=== PATIENT | female | born 1945 | race Caucasian/White ===

== ENCOUNTER 2023-08-15 13:26 | Inpatient (IN) | payer MEDICARE, OTHER ==
[~2023-08-15] VITALS: Ht 165.1 cm; Wt 108.9 kg
[2023-08-15] MEDS ORDERED: diphenhydrAMINE 50 MG/1 ML VIAL ONE (14:09)
[2023-08-15] MEDS ORDERED: HYDROMORPHONE 1 MG/1 ML DISP.SYRIN ONE (14:09)
[2023-08-15] MEDS: diphenhydrAMINE 50 MG/1 ML VIAL IM ONE (14:30)
[2023-08-15] MEDS: HYDROMORPHONE 1 MG/1 ML DISP.SYRIN IM ONE (14:31)
[2023-08-15] MEDS ORDERED: METH500T50 PO (14:36)
[2023-08-15] MEDS ORDERED: POLY250017 PO (14:36)
[2023-08-15] MEDS ORDERED: ATOR40TA PO (14:36)
[2023-08-15] MEDS ORDERED: [UNRECOGNIZED DRUG - CODE] PO (14:36)
[2023-08-15] MEDS ORDERED: METH4TAB17 PO (14:36)
[2023-08-15] MEDS ORDERED: LEVO150T8 PO (14:36)
[2023-08-15] MEDS ORDERED: TROS20TA3 PO (14:36)
[2023-08-15] MEDS ORDERED: HYDR-4077 PO (14:36)
[2023-08-15] MEDS ORDERED: LIPA1CAP15 PO (14:36)
[2023-08-15 15:00] LABS: BASOPHILS % (AUTO) 0.5 % (0.0-2.0); EOSINOPHILS % (AUTO) 0.7 % (0.0-7.0); LYMPHOCYTES # (AUTO) 0.8 K/uL (0.8-4.8); MEAN CORPUSCULAR HEMOGLOBIN 31.9 uug (24.7-32.8); MEAN CORPUSCULAR HGB CONC 32 g/dL (32.3-35.6); MEAN CORPUSCULAR VOLUME 101.4 fL (75.5-95.3); MONOCYTES % (AUTO) 0.8 % (0.0-11.0); NEUTROPHILS # (AUTO) 2.7 K/uL (1.8-8.9); PLATELET COUNT (AUTO) 250 K/uL (179-408); RED BLOOD CELL COUNT(AUTO) 3.74 MIL/uL (3.63-4.92); RED CELL DISTRIBUTION WIDTH 14.9 % (12.3-17.7); WHITE BLOOD COUNT (AUTO) 3.6 K/uL (3.8-11.8)
[2023-08-15 15:03] LABS: DIFFERENTIAL COMMENT 1
[2023-08-15 15:11] LABS: ALANINE AMINOTRANSFERASE 192 U/L (14-59); ALBUMIN 3.8 g/dL (3.4-5.0); ALKALINE PHOSPHATASE 342 U/L (50-136); ASPARTATE AMINOTRANSFERASE 590 U/L (15-37); BILIRUBIN,DIRECT 1.2 mg/dL (0.0-0.2); BILIRUBIN,TOTAL 1.6 mg/dL (0.2-1.0); CALCIUM 8.9 mg/dL (8.5-10.1); CARBON DIOXIDE 24 mmol/L (21-32); CHLORIDE 108 mmol/L (98-107); CREATININE 0.8 mg/dL (0.6-1.3); GLUCOSE 118 mg/dL (74-106); LIPASE 10 U/L (16-77); POTASSIUM 4.4 mmol/L (3.5-5.1); SODIUM SERUM 145 mmol/L (136-145); TOTAL PROTEIN, SERUM 7.9 g/dL (6.4-8.2); UREA NITROGEN, BLOOD 20 mg/dL (7-18)
[2023-08-15 16:56] LABS: *BILIRUBIN,URIN 1+ (NEGATIVE); *BLOOD, URINE NEGATIVE (NEGATIVE); *CLARITY,URINE CLEAR (CLEAR); *COLOR,URINE YELLOW (YELLOW); *KETONES,URINE NEGATIVE (NEGATIVE); *PROTEIN,URINE 1+ (NEGATIVE); LEUKOCYTE ESTERASE ,URINE NEGATIVE (NEGATIVE); NITRITE, URINE NEGATIVE (NEGATIVE); PH,URINE 5.5 (5.0-8.0); UGLUCOSE NEGATIVE (NEGATIVE)
[2023-08-15 17:24] LABS: BACTERIA,URINE MANY /HPF (NONE SEEN); RBC,URINE 0-3 /HPF (0-3); SQUAMOUS EPITHELIAL CELL,UR FEW /HPF (NONE SEEN); WBC,URINE 0-3 /HPF (0-3)
[2023-08-15] MEDS ORDERED: MAGNESIUM HYDROXIDE 30 ML LIQUID UDC PO PRN (18:15)
[2023-08-15] MEDS ORDERED: PIPERACILLIN SODIUM/TAZOBACTAM 3.375 G in IV DEXTROSE 5% 50 ML IV SCH (18:15)
[2023-08-15] MEDS: PIPERACILLIN SODIUM/TAZOBACTAM 3.375 G in IV DEXTROSE 5% 100 ML IV SCH (18:29)
[2023-08-15 20:11] VITALS: BP 122/55; TEMP 98.7; O2SAT 96
[2023-08-15] MEDS ORDERED: PIPERACILLIN SODIUM/TAZO 3.375 GM VIAL ONE (23:13)
[2023-08-16] VITALS (8 sets, daily range): BP systolic 118–156; BP diastolic 46–69; TEMP 98.5–100.1; O2SAT 94–98
[2023-08-16] MEDS: PIPERACILLIN SODIUM/TAZOBACTAM 3.375 G in IV DEXTROSE 5% 100 ML IV SCH ×2 (00:02→07:23)
[2023-08-16] MEDS: HYDROMORPHONE 1 MG/1 ML DISP.SYRIN IV PRN (08:24)
[2023-08-16 09:22] LABS: ALANINE AMINOTRANSFERASE 445 U/L (14-59); ALBUMIN 2.5 g/dL (3.4-5.0); ALKALINE PHOSPHATASE 298 U/L (50-136); ASPARTATE AMINOTRANSFERASE 714 U/L (15-37); BILIRUBIN,DIRECT 2.2 mg/dL (0.0-0.2); BILIRUBIN,TOTAL 2.9 mg/dL (0.2-1.0); CALCIUM 7.8 mg/dL (8.5-10.1); CARBON DIOXIDE 25 mmol/L (21-32); CHLORIDE 107 mmol/L (98-107); CHOLESTEROL 121 mg/dL (<200); CREATININE 0.8 mg/dL (0.6-1.3); GLUCOSE 87 mg/dL (74-106); HDL CHOLESTEROL 66 mg/dL (40-60); MAGNESIUM 1.7 mg/dL (1.8-2.4); PHOSPHOROUS 5.3 mg/dL (2.5-4.9); POTASSIUM 3.1 mmol/L (3.5-5.1); SODIUM SERUM 142 mmol/L (136-145); TRIGLYCERIDES 105 MG/DL (30-150); UREA NITROGEN, BLOOD 25 mg/dL (7-18)
[2023-08-16 10:55] LABS: BASOPHILS % (AUTO) 0.1 % (0.0-2.0); EOSINOPHILS % (AUTO) 0.1 % (0.0-7.0); HEMATOCRIT 30.5 % (31.2-41.9); HEMOGLOBIN 9.8 g/dL (10.9-14.3); LYMPHOCYTES # (AUTO) 0.4 K/uL (0.8-4.8); LYMPHOCYTES % (AUTO) 2.6 % (20.5-51.5); MEAN CORPUSCULAR HGB CONC 32 g/dL (32.3-35.6); MEAN CORPUSCULAR VOLUME 99.3 fL (75.5-95.3); MONOCYTES # (AUTO) 0.9 K/uL (0.1-1.30); MONOCYTES % (AUTO) 6.6 % (0.0-11.0); NEUTROPHILS # (AUTO) 12.8 K/uL (1.8-8.9); NEUTROPHILS % (AUTO) 90.6 % (38.5-71.5); PLATELET COUNT (AUTO) 175 K/uL (179-408); RED BLOOD CELL COUNT(AUTO) 3.07 MIL/uL (3.63-4.92); RED CELL DISTRIBUTION WIDTH 14.1 % (12.3-17.7); WHITE BLOOD COUNT (AUTO) 14.2 K/uL (3.8-11.8)
[2023-08-16 10:56] LABS: DIFFERENTIAL COMMENT 1
[2023-08-16] MEDS: VANCOMYCIN HCL 750 MG in IV DEXTROSE 5% 250 ML IV SCH (13:06)
[2023-08-16] MEDS ORDERED: MAGNESIUM OXIDE 400 MG TABLET PO ONE (15:40)
[2023-08-16] MEDS: MAGNESIUM SULFATE/D5W 100 ML IV SCH (15:58)
[2023-08-16] MEDS: LORAZEPAM 2 MG/1 ML VIAL IV ONE ×2 (16:00→21:49)
[2023-08-16] MEDS: POTASSIUM CHLORIDE 50 ML IV SCH (16:58)
[2023-08-16] MEDS: IV NS 1000 ML 1,000 ML IV PRN (18:26)
[2023-08-16] MEDS ORDERED: PIPERACILLIN SODIUM/TAZOBACTAM 3.375 G in IV DEXTROSE 5% 100 ML IV SCH (22:30)
[2023-08-17] VITALS (8 sets, daily range): BP systolic 138–175; BP diastolic 58–75; TEMP 98.1–99.2; O2SAT 95–99
[2023-08-17] MEDS: QUETIAPINE FUMARATE 25 MG TABLET PO ONE (08:10)
[2023-08-17 09:36] LABS: BASOPHILS # (AUTO) 0.1 K/UL (0.0-0.2); BASOPHILS % (AUTO) 0.4 % (0.0-2.0); EOSINOPHILS # (AUTO) 0.2 K/uL (0.0-0.7); EOSINOPHILS % (AUTO) 1.2 % (0.0-7.0); HEMOGLOBIN 9.4 g/dL (10.9-14.3); LYMPHOCYTES # (AUTO) 0.5 K/uL (0.8-4.8); LYMPHOCYTES % (AUTO) 3.6 % (20.5-51.5); MEAN CORPUSCULAR HEMOGLOBIN 32.1 uug (24.7-32.8); MEAN CORPUSCULAR HGB CONC 32 g/dL (32.3-35.6); MEAN CORPUSCULAR VOLUME 99.6 fL (75.5-95.3); MONOCYTES # (AUTO) 0.5 K/uL (0.1-1.30); MONOCYTES % (AUTO) 3.6 % (0.0-11.0); NEUTROPHILS % (AUTO) 91.2 % (38.5-71.5); PLATELET COUNT (AUTO) 165 K/uL (179-408); RED BLOOD CELL COUNT(AUTO) 2.91 MIL/uL (3.63-4.92); RED CELL DISTRIBUTION WIDTH 13.6 % (12.3-17.7); WHITE BLOOD COUNT (AUTO) 14.2 K/uL (3.8-11.8)
[2023-08-17 09:38] LABS: DIFFERENTIAL COMMENT 1
[2023-08-17 09:40] LABS: CALCIUM 8.1 mg/dL (8.5-10.1); CARBON DIOXIDE 24 mmol/L (21-32); CHLORIDE 110 mmol/L (98-107); CREATININE 0.7 mg/dL (0.6-1.3); GLUCOSE 201 mg/dL (74-106); MAGNESIUM 2.3 mg/dL (1.8-2.4); PHOSPHOROUS 2.3 mg/dL (2.5-4.9); POTASSIUM 3.6 mmol/L (3.5-5.1); SODIUM SERUM 142 mmol/L (136-145); UREA NITROGEN, BLOOD 14 mg/dL (7-18)
[2023-08-17 09:42] LABS: ALBUMIN 2.1 g/dL (3.4-5.0); BILIRUBIN,DIRECT 1.1 mg/dL (0.0-0.2); BILIRUBIN,TOTAL 1.6 mg/dL (0.2-1.0); TOTAL PROTEIN, SERUM 5.7 g/dL (6.4-8.2)
[2023-08-18] VITALS (7 sets, daily range): BP systolic 111–156; BP diastolic 62–75; TEMP 97.8–98.5; O2SAT 95–99
[2023-08-18] MEDS: QUETIAPINE FUMARATE 25 MG TABLET PO ONE (00:35)
[2023-08-18] MEDS: OLANZAPINE 10 MG VIAL IM ONE (01:02)
[2023-08-18 07:00] LABS: BASOPHILS % (AUTO) 0.2 % (0.0-2.0); EOSINOPHILS # (AUTO) 0.1 K/uL (0.0-0.7); EOSINOPHILS % (AUTO) 1.1 % (0.0-7.0); HEMATOCRIT 26.8 % (31.2-41.9); HEMOGLOBIN 8.8 g/dL (10.9-14.3); LYMPHOCYTES # (AUTO) 0.6 K/uL (0.8-4.8); LYMPHOCYTES % (AUTO) 6.5 % (20.5-51.5); MEAN CORPUSCULAR HGB CONC 33 g/dL (32.3-35.6); MEAN CORPUSCULAR VOLUME 97.1 fL (75.5-95.3); MONOCYTES # (AUTO) 0.6 K/uL (0.1-1.30); MONOCYTES % (AUTO) 7.1 % (0.0-11.0); NEUTROPHILS # (AUTO) 7.2 K/uL (1.8-8.9); NEUTROPHILS % (AUTO) 85.1 % (38.5-71.5); PLATELET COUNT (AUTO) 160 K/uL (179-408); RED BLOOD CELL COUNT(AUTO) 2.76 MIL/uL (3.63-4.92); RED CELL DISTRIBUTION WIDTH 13.6 % (12.3-17.7); WHITE BLOOD COUNT (AUTO) 8.5 K/uL (3.8-11.8)
[2023-08-18 07:13] LABS: DIFFERENTIAL COMMENT 1
[2023-08-18 07:20] LABS: ALANINE AMINOTRANSFERASE 193 U/L (14-59); ALBUMIN 1.9 g/dL (3.4-5.0); ALKALINE PHOSPHATASE 225 U/L (50-136); ASPARTATE AMINOTRANSFERASE 126 U/L (15-37); BILIRUBIN,DIRECT 0.9 mg/dL (0.0-0.2); BILIRUBIN,TOTAL 1.3 mg/dL (0.2-1.0); CALCIUM 7.7 mg/dL (8.5-10.1); CARBON DIOXIDE 30 mmol/L (21-32); CHLORIDE 109 mmol/L (98-107); CREATININE 0.5 mg/dL (0.6-1.3); GLUCOSE 121 mg/dL (74-106); POTASSIUM 3.1 mmol/L (3.5-5.1); SODIUM SERUM 144 mmol/L (136-145); TOTAL PROTEIN, SERUM 5.4 g/dL (6.4-8.2); UREA NITROGEN, BLOOD 8 mg/dL (7-18)
[2023-08-18] MEDS: PANTOPRAZOLE SODIUM 40 MG VIAL IV SCH (08:51)
[2023-08-18] MEDS: MORPHINE SULFATE 2 MG/1 ML DISP.SYRIN IV ONE ×2 (12:45→14:55)
[2023-08-18] MEDS: POTASSIUM CHLORIDE 50 ML IV SCH (15:25)
[2023-08-18] MEDS: NEUTRA PHOS PACKET PO ONE (17:49)
[2023-08-18] MEDS: hydrALAZINE HCL 25 MG TABLET PO PRN (21:28)
[2023-08-19 06:04] VITALS: BP 105/69; TEMP 97.4; O2SAT 95
[2023-08-19 07:12] LABS: BASOPHILS % (AUTO) 0.2 % (0.0-2.0); EOSINOPHILS # (AUTO) 0.1 K/uL (0.0-0.7); EOSINOPHILS % (AUTO) 1.4 % (0.0-7.0); HEMATOCRIT 28.2 % (31.2-41.9); HEMOGLOBIN 9.4 g/dL (10.9-14.3); LYMPHOCYTES # (AUTO) 0.5 K/uL (0.8-4.8); LYMPHOCYTES % (AUTO) 7.6 % (20.5-51.5); MEAN CORPUSCULAR HGB CONC 33 g/dL (32.3-35.6); MEAN CORPUSCULAR VOLUME 96.3 fL (75.5-95.3); MONOCYTES # (AUTO) 0.6 K/uL (0.1-1.30); MONOCYTES % (AUTO) 8.9 % (0.0-11.0); NEUTROPHILS # (AUTO) 5.2 K/uL (1.8-8.9); NEUTROPHILS % (AUTO) 81.9 % (38.5-71.5); PLATELET COUNT (AUTO) 168 K/uL (179-408); RED BLOOD CELL COUNT(AUTO) 2.92 MIL/uL (3.63-4.92); RED CELL DISTRIBUTION WIDTH 13.3 % (12.3-17.7); WHITE BLOOD COUNT (AUTO) 6.3 K/uL (3.8-11.8)
[2023-08-19 07:21] LABS: ALANINE AMINOTRANSFERASE 147 U/L (14-59); ALBUMIN 2.1 g/dL (3.4-5.0); ALKALINE PHOSPHATASE 282 U/L (50-136); ASPARTATE AMINOTRANSFERASE 88 U/L (15-37); BILIRUBIN,DIRECT 0.6 mg/dL (0.0-0.2); CALCIUM 8.1 mg/dL (8.5-10.1); CARBON DIOXIDE 30 mmol/L (21-32); CHLORIDE 110 mmol/L (98-107); CREATININE 0.5 mg/dL (0.6-1.3); GLUCOSE 117 mg/dL (74-106); PHOSPHOROUS 2.1 mg/dL (2.5-4.9); SODIUM SERUM 147 mmol/L (136-145); TOTAL PROTEIN, SERUM 5.6 g/dL (6.4-8.2); UREA NITROGEN, BLOOD 6 mg/dL (7-18)
[2023-08-19 08:21] VITALS: BP 98/81; TEMP 98.2; O2SAT 96
[2023-08-19] MEDS ORDERED: POTASSIUM CHLORIDE 50 ML IV SCH (09:15)
[2023-08-19] MEDS: POTASSIUM CHLORIDE 50 ML IV SCH (11:19)
[2023-08-19 11:48] VITALS: BP 142/86; TEMP 98.1; O2SAT 96
[2023-08-19 13:49] VITALS: O2SAT 96
[2023-08-19 15:39] VITALS: BP 111/69; TEMP 98; O2SAT 97
[2023-08-19] MEDS: POTASSIUM PHOSPHATE MM 15 MMOL in IV NORMAL SALINE 250 ML IV ONE (15:53)
[2023-08-19] MEDS: NEUTRA PHOS PACKET PO ONE (16:33)
[2023-08-19] MEDS: ONDANSETRON 4 MG/2 ML VIAL IV PRN (16:37)
[2023-08-19 21:22] VITALS: O2SAT 97
[2023-08-20 06:18] VITALS: BP 99/49; TEMP 98.2; O2SAT 93
[2023-08-20 06:53] LABS: BASOPHILS % (AUTO) 0.1 % (0.0-2.0); EOSINOPHILS % (AUTO) 0.3 % (0.0-7.0); HEMATOCRIT 27.9 % (31.2-41.9); HEMOGLOBIN 9.2 g/dL (10.9-14.3); LYMPHOCYTES # (AUTO) 0.4 K/uL (0.8-4.8); LYMPHOCYTES % (AUTO) 3.2 % (20.5-51.5); MEAN CORPUSCULAR HEMOGLOBIN 32.2 uug (24.7-32.8); MEAN CORPUSCULAR HGB CONC 33 g/dL (32.3-35.6); MEAN CORPUSCULAR VOLUME 97.1 fL (75.5-95.3); MONOCYTES % (AUTO) 8.3 % (0.0-11.0); NEUTROPHILS # (AUTO) 10.2 K/uL (1.8-8.9); NEUTROPHILS % (AUTO) 88.1 % (38.5-71.5); PLATELET COUNT (AUTO) 174 K/uL (179-408); RED BLOOD CELL COUNT(AUTO) 2.87 MIL/uL (3.63-4.92); RED CELL DISTRIBUTION WIDTH 13.5 % (12.3-17.7); WHITE BLOOD COUNT (AUTO) 11.6 K/uL (3.8-11.8)
[2023-08-20 07:12] LABS: BILIRUBIN,TOTAL 4.1 mg/dL (0.2-1.0); CALCIUM 7.5 mg/dL (8.5-10.1); CREATININE 0.7 mg/dL (0.6-1.3); POTASSIUM 3.1 mmol/L (3.5-5.1); TOTAL PROTEIN, SERUM 5.4 g/dL (6.4-8.2)
[2023-08-20 07:16] LABS: DIFFERENTIAL COMMENT 1
[2023-08-20] MEDS: LORAZEPAM 2 MG/1 ML VIAL IV PRN (08:17)
[2023-08-20] MEDS ORDERED: REMEDY ESSENTIAL ZINC PASTE 113 GM TOP PRN (11:30)
[2023-08-20] MEDS: POTASSIUM CHLORIDE 50 ML IV SCH (11:47)
[2023-08-20 16:00] VITALS: BP 148/60; TEMP 98.9; O2SAT 95
[2023-08-20 16:40] VITALS: O2SAT 96
[2023-08-20] MEDS: CLOTRIMAZOLE 1% CREAM 30 GM TUBE TOP SCH (17:46)
[2023-08-20] MEDS: REMEDY ESSENTIAL ZINC PASTE 113 GM TOP SCH (20:54)
[2023-08-21 05:29] VITALS: O2SAT 96
[2023-08-21 06:44] VITALS: BP 132/69; TEMP 98.9; O2SAT 96
[2023-08-21 06:56] LABS: BASOPHILS % (AUTO) 0.2 % (0.0-2.0); EOSINOPHILS % (AUTO) 0.3 % (0.0-7.0); HEMATOCRIT 25.9 % (31.2-41.9); HEMOGLOBIN 8.5 g/dL (10.9-14.3); LYMPHOCYTES # (AUTO) 0.7 K/uL (0.8-4.8); MEAN CORPUSCULAR HEMOGLOBIN 32.2 uug (24.7-32.8); MEAN CORPUSCULAR HGB CONC 33 g/dL (32.3-35.6); MEAN CORPUSCULAR VOLUME 97.5 fL (75.5-95.3); MONOCYTES # (AUTO) 0.8 K/uL (0.1-1.30); MONOCYTES % (AUTO) 9.3 % (0.0-11.0); NEUTROPHILS # (AUTO) 6.8 K/uL (1.8-8.9); NEUTROPHILS % (AUTO) 82.2 % (38.5-71.5); PLATELET COUNT (AUTO) 153 K/uL (179-408); RED BLOOD CELL COUNT(AUTO) 2.65 MIL/uL (3.63-4.92); RED CELL DISTRIBUTION WIDTH 13.2 % (12.3-17.7); WHITE BLOOD COUNT (AUTO) 8.3 K/uL (3.8-11.8)
[2023-08-21 07:15] LABS: ALANINE AMINOTRANSFERASE 118 U/L (14-59); ALBUMIN 1.8 g/dL (3.4-5.0); ALKALINE PHOSPHATASE 349 U/L (50-136); ASPARTATE AMINOTRANSFERASE 69 U/L (15-37); BILIRUBIN,TOTAL 3.3 mg/dL (0.2-1.0); CALCIUM 7.4 mg/dL (8.5-10.1); CARBON DIOXIDE 30 mmol/L (21-32); CHLORIDE 105 mmol/L (98-107); CREATININE 0.6 mg/dL (0.6-1.3); GLUCOSE 141 mg/dL (74-106); POTASSIUM 3.2 mmol/L (3.5-5.1); SODIUM SERUM 140 mmol/L (136-145); TOTAL PROTEIN, SERUM 5.5 g/dL (6.4-8.2); UREA NITROGEN, BLOOD 7 mg/dL (7-18)
[2023-08-21 07:17] LABS: DIFFERENTIAL COMMENT 1
[2023-08-21] MEDS: POTASSIUM CHLORIDE 20 MEQ POWDER PACKET PO ONE (10:42)
[2023-08-21 11:32] VITALS: BP 149/66; TEMP 98; O2SAT 98
[2023-08-21 15:59] VITALS: BP 120/51; TEMP 100.3; O2SAT 96
[2023-08-21 16:20] VITALS: O2SAT 97
[2023-08-21 20:00] VITALS: BP 129/56; TEMP 98.6; O2SAT 96
[2023-08-21] MEDS: ACETAMINOPHEN 325 MG TABLET PO PRN (21:00)
[2023-08-22 06:03] VITALS: BP 149/62; TEMP 98.4; O2SAT 98
[2023-08-22 07:01] LABS: BASOPHILS % (AUTO) 0.6 % (0.0-2.0); EOSINOPHILS # (AUTO) 0.1 K/uL (0.0-0.7); EOSINOPHILS % (AUTO) 1.1 % (0.0-7.0); HEMATOCRIT 27.7 % (31.2-41.9); LYMPHOCYTES # (AUTO) 0.4 K/uL (0.8-4.8); LYMPHOCYTES % (AUTO) 5.2 % (20.5-51.5); MEAN CORPUSCULAR HEMOGLOBIN 32.2 uug (24.7-32.8); MEAN CORPUSCULAR HGB CONC 33 g/dL (32.3-35.6); MEAN CORPUSCULAR VOLUME 98.8 fL (75.5-95.3); MONOCYTES # (AUTO) 0.5 K/uL (0.1-1.30); MONOCYTES % (AUTO) 6.5 % (0.0-11.0); NEUTROPHILS # (AUTO) 6.8 K/uL (1.8-8.9); NEUTROPHILS % (AUTO) 86.6 % (38.5-71.5); PLATELET COUNT (AUTO) 177 K/uL (179-408); RED CELL DISTRIBUTION WIDTH 13.8 % (12.3-17.7); WHITE BLOOD COUNT (AUTO) 7.8 K/uL (3.8-11.8)
[2023-08-22 07:11] LABS: DIFFERENTIAL COMMENT 1
[2023-08-22 07:16] LABS: ALANINE AMINOTRANSFERASE 76 U/L (14-59); ALBUMIN 1.7 g/dL (3.4-5.0); ALKALINE PHOSPHATASE 285 U/L (50-136); ASPARTATE AMINOTRANSFERASE 35 U/L (15-37); BILIRUBIN,TOTAL 1.2 mg/dL (0.2-1.0); CALCIUM 7.5 mg/dL (8.5-10.1); CARBON DIOXIDE 28 mmol/L (21-32); CHLORIDE 108 mmol/L (98-107); CREATININE 0.5 mg/dL (0.6-1.3); GLUCOSE 102 mg/dL (74-106); POTASSIUM 3.3 mmol/L (3.5-5.1); SODIUM SERUM 142 mmol/L (136-145); TOTAL PROTEIN, SERUM 5.4 g/dL (6.4-8.2); UREA NITROGEN, BLOOD 6 mg/dL (7-18)
[2023-08-22] MEDS: POTASSIUM CHLORIDE 50 ML IV SCH (10:11)
[2023-08-22 12:00] VITALS: BP 151/63; TEMP 98.7; O2SAT 98
[2023-08-22 16:00] VITALS: BP 166/54; TEMP 98.2; O2SAT 97
[2023-08-22 19:35] VITALS: BP 113/59; TEMP 98.8; O2SAT 94
[2023-08-22 21:19] VITALS: O2SAT 96
[2023-08-23 04:15] VITALS: BP 148/50; TEMP 98.7; O2SAT 98
[2023-08-23 06:31] LABS: BASOPHILS % (AUTO) 0.3 % (0.0-2.0); EOSINOPHILS # (AUTO) 0.1 K/uL (0.0-0.7); EOSINOPHILS % (AUTO) 1.6 % (0.0-7.0); HEMATOCRIT 30.7 % (31.2-41.9); HEMOGLOBIN 10.2 g/dL (10.9-14.3); LYMPHOCYTES # (AUTO) 0.5 K/uL (0.8-4.8); LYMPHOCYTES % (AUTO) 8.2 % (20.5-51.5); MEAN CORPUSCULAR HEMOGLOBIN 32.1 uug (24.7-32.8); MEAN CORPUSCULAR HGB CONC 33 g/dL (32.3-35.6); MEAN CORPUSCULAR VOLUME 96.9 fL (75.5-95.3); MONOCYTES # (AUTO) 0.3 K/uL (0.1-1.30); MONOCYTES % (AUTO) 5.6 % (0.0-11.0); NEUTROPHILS # (AUTO) 5.3 K/uL (1.8-8.9); NEUTROPHILS % (AUTO) 84.3 % (38.5-71.5); PLATELET COUNT (AUTO) 262 K/uL (179-408); RED BLOOD CELL COUNT(AUTO) 3.17 MIL/uL (3.63-4.92); RED CELL DISTRIBUTION WIDTH 13.6 % (12.3-17.7); WHITE BLOOD COUNT (AUTO) 6.2 K/uL (3.8-11.8)
[2023-08-23 06:48] LABS: DIFFERENTIAL COMMENT 1
[2023-08-23 07:00] LABS: ALBUMIN 1.9 g/dL (3.4-5.0); BILIRUBIN,TOTAL 3.2 mg/dL (0.2-1.0); CALCIUM 7.9 mg/dL (8.5-10.1); CREATININE 0.6 mg/dL (0.6-1.3); POTASSIUM 3.4 mmol/L (3.5-5.1); TOTAL PROTEIN, SERUM 6.2 g/dL (6.4-8.2)
[2023-08-23 12:00] VITALS: BP 147/78; TEMP 97.6; O2SAT 97
[2023-08-23] MEDS: POTASSIUM CHLORIDE 20 MEQ TAB.PRT.SR PO ONE (14:37)
[2023-08-23 15:59] VITALS: BP 144/55; TEMP 97.8; O2SAT 97
[2023-08-23 20:00] VITALS: BP 175/67; TEMP 97.8; O2SAT 96
[2023-08-23] MEDS: ACIDOPHILUS/BULGARICUS CHEW TAB PO SCH (21:17)
[2023-08-23 21:32] VITALS: O2SAT 97
[2023-08-23] MEDS: TRAZODONE 50 MG TABLET PO PRN (22:12)
[2023-08-24 06:30] VITALS: BP 139/54; TEMP 98.4; O2SAT 96
[2023-08-24] MEDS: PANTOPRAZOLE SODIUM 40 MG TABLET.DR PO SCH (06:52)
[2023-08-24 06:53] LABS: BASOPHILS % (AUTO) 0.3 % (0.0-2.0); EOSINOPHILS # (AUTO) 0.1 K/uL (0.0-0.7); EOSINOPHILS % (AUTO) 1.7 % (0.0-7.0); HEMATOCRIT 25.4 % (31.2-41.9); HEMOGLOBIN 8.4 g/dL (10.9-14.3); LYMPHOCYTES # (AUTO) 0.4 K/uL (0.8-4.8); MEAN CORPUSCULAR HEMOGLOBIN 32.2 uug (24.7-32.8); MEAN CORPUSCULAR HGB CONC 33 g/dL (32.3-35.6); MEAN CORPUSCULAR VOLUME 96.5 fL (75.5-95.3); MONOCYTES # (AUTO) 0.4 K/uL (0.1-1.30); MONOCYTES % (AUTO) 7.5 % (0.0-11.0); NEUTROPHILS % (AUTO) 82.5 % (38.5-71.5); PLATELET COUNT (AUTO) 244 K/uL (179-408); RED BLOOD CELL COUNT(AUTO) 2.63 MIL/uL (3.63-4.92); RED CELL DISTRIBUTION WIDTH 13.6 % (12.3-17.7); WHITE BLOOD COUNT (AUTO) 4.9 K/uL (3.8-11.8)
[2023-08-24 07:04] LABS: DIFFERENTIAL COMMENT 1
[2023-08-24 07:09] LABS: ALANINE AMINOTRANSFERASE 64 U/L (14-59); ALBUMIN 1.6 g/dL (3.4-5.0); ALKALINE PHOSPHATASE 359 U/L (50-136); ASPARTATE AMINOTRANSFERASE 45 U/L (15-37); CALCIUM 7.4 mg/dL (8.5-10.1); CARBON DIOXIDE 28 mmol/L (21-32); CHLORIDE 107 mmol/L (98-107); CREATININE 0.5 mg/dL (0.6-1.3); GLUCOSE 109 mg/dL (74-106); SODIUM SERUM 141 mmol/L (136-145); TOTAL PROTEIN, SERUM 5.1 g/dL (6.4-8.2); UREA NITROGEN, BLOOD 2 mg/dL (7-18)
[2023-08-24] MEDS ORDERED: Medication Not On Formulary EA (Lipase/Protease/Amylase (Creon Dr 36,000 Units Capsule) PO SCH (09:00)
[2023-08-24] MEDS: LIPASE/PROTEASE/AMYLASE 4200 UNITS CAPSULE.DR PO SCH (09:36)
[2023-08-24] MEDS ORDERED: POTASSIUM CHLORIDE 20 MEQ POWDER PACKET GT SCH (11:00)
== END 2023-08-24 11:50 | disposition short-term general hospital (02) | DRG 444 ==
LOC: ER 13:26 → TELE3 17:58 → MEDSURG3 08-18 12:53
PROVIDERS: ADMIT Nurse Practitioner Acute Care; ATTEND Nurse Practitioner Acute Care
PROC: 05HB33Z Insertion of Infusion Device into Right Basilic Vein, Percutaneous Approach (ICD-10-PCS; principal; 2023-08-15)
DX: K80.01 Calculus of gallbladder with acute cholecystitis with obstruction (principal); G93.41 Metabolic encephalopathy; E85.4 Organ-limited amyloidosis; C78.80 Secondary malignant neoplasm of unspecified digestive organ; E44.0 Moderate protein-calorie malnutrition; I68.0 Cerebral amyloid angiopathy; I69.219 Unspecified symptoms and signs involving cognitive functions following other nontraumatic intracranial hemorrhage; F03.90 Unspecified dementia, unspecified severity, without behavioral disturbance, psychotic disturbance, mood disturbance, and anxiety; Z98.84 Bariatric surgery status; E66.9 Obesity, unspecified; Z68.39 Body mass index [BMI] 39.0-39.9, adult; K43.2 Incisional hernia without obstruction or gangrene; K76.0 Fatty (change of) liver, not elsewhere classified; E03.9 Hypothyroidism, unspecified; Z91.018 Allergy to other foods; Z85.89 Personal history of malignant neoplasm of other organs and systems; Z90.49 Acquired absence of other specified parts of digestive tract; E78.5 Hyperlipidemia, unspecified; I10 Essential (primary) hypertension; Z95.0 Presence of cardiac pacemaker; K63.89 Other specified diseases of intestine; E88.09 Other disorders of plasma-protein metabolism, not elsewhere classified; Z53.20 Procedure and treatment not carried out because of patient's decision for unspecified reasons; R19.09 Other intra-abdominal and pelvic swelling, mass and lump
CPT/HCPCS: 36415; 71045; 74181; 78445; 83690; 83735; 84100; 84484; 85025; 85610; 85730; 87040; 93005; 93307; 94760; A4606; A4663; A9537; C9113; G0378; J1170; J1200; J2060; J2270; J2358; J2405; J2543; J3475; J3480; J3490; J7040; J7050